=== PATIENT | female | born 1995 | race African-American/Black ===

== ENCOUNTER 2019-11-27 12:48 | Emergency (ER) | payer OTHER ==
[2019-11-27 13:02] VITALS: BP 103/64; PULSE 80; TEMP 97.8; BMI 32.4
--- NOTE | 2019-11-27 13:28 | PDOC ---
History of Present Illness - General Chief Complaint: Pain Stated Complaint: LT. BREAST LUMP Time Seen by Provider: 11/27/19 13:03 History Source: Patient - History of Present Illness Timing/Duration: other Severity: moderate Past History - Past Medical History Allergies/Adverse Reactions: Allergies Allergy/AdvReac Type Severity Reaction Status Date / Time No Known Allergies Allergy Verified 11/27/19 12:58 CVA: Yes COPD: Yes CHF: Yes Other medical history: MIGRANES - Immunization History Immunization Up to Date: Yes - Psycho Social/Smoking Cessation Hx Smoking History: Never smoked Hx Alcohol Use: No Drug/Substance Use Hx: No Review of Systems - Review of Systems Constitutional: No: Chills, Fever *Physical Exam - Vital Signs Last Vital Signs Temp Pulse Resp BP Pulse Ox 97.8 F 80 16 103/64 100 11/27/19 12:59 11/27/19 12:59 11/27/19 12:59 11/27/19 12:59 11/27/19 12:59 - Physical Exam General Appearance: Yes: Appropriately Dressed. No: Apparent Distress HEENT: positive: Normal Voice Neck: positive: Supple Respiratory/Chest: positive: Other (~2x1 hard, minimally tender mass w/ deep palpation to L breast in 2-3 0' clock position, no erythema, no axillart lymphadenopathy). negative: Respiratory Distress Integumentary: positive: Dry, Warm Neurologic: positive: Fully Oriented, Alert, Normal Mood/Affect ED Treatment Course - RADIOLOGY Radiology Studies Ordered: Category Date Time Status BREAST US LEFT COMPLETE [US] Routine Ultrasound 11/27/19 13:22 Ordered Medical Decision Making - Medical Decision Making 11/27/19 13:25 24-year-old female, no significant history, here with L breast mass that is minimally painful since yesterday. No fever, chills, skin discoloration, nipple discharge or unexplained weight loss. No recent trauma. No prior episode. Not currently on menses. No family no significant family history p see exam L breast mass R/o abscess vs cyst, r/o malignancy -US 11/27/19 14:19 Ultrasound compatible with cyst per report. Will dc with [id number] meds as needed pain and follow-up with breast specialist, Dr. Reyes Discharge - Discharge Information Problems reviewed: Yes Clinical Impression/Diagnosis: Left breast mass Condition: Good Disposition: HOME - Follow up/Referral Referrals: Severiano Farmer MD [Primary Care Provider] - Yan Reyes MD [Staff Physician] - - Patient Discharge Instructions Patient Printed Discharge Instructions: DI for Breast Cyst Additional Instructions: Your ultrasound shows a breast cyst Please follow-up with Dr. Reyes for further evaluation Take motrin or tylenol for pain as needed - Post Discharge Activity Work/Back to School Note: Back to Work
== END 2019-11-27 14:22 | disposition home or self-care (01) ==
LOC: JERFT 12:48
DX: N63.21 Unspecified lump in the left breast, upper outer quadrant (principal)
CPT/HCPCS: 76642-TC-LT; 99281-25

== ENCOUNTER → 2019-12-24 | Day surgery (SDC) | payer OTHER ==
--- NOTE | 2019-12-26 18:23 | PATH ---
Cytology Non-Gynecological Report Patient Name: BARB MEDEL Med. Rec. #: [id number] /Age/Gender: 1995 (Age: 24) / F Account: [id number] Location: Taken: 12/24/2019 Received: 12/24/2019 Reported: 12/26/2019 Physicians: Norberto Barber MD Specimen(s) Received BREAST, LEFT, CYST, FINE NEEDLE ASPIRATION Clinical History 24 year old female with palpable left breast cyst Final Diagnosis BREAST, LEFT, CYST, 2:00, FINE NEEDLE ASPIRATION: SCANT PROTEINACEOUS DEBRIS SUGGESTIVE OF CYST CONTENTS. NO MALIGNANT CELLS IDENTIFIED. NO MACROPHAGES OR DUCTAL CELLS IDENTIFIED. Comment: Suggest clinical and radiologic correlation Electronically Signed Darcy Wick M.D. Gross Description Approximately 35 cc of white turbid fluid received fixed in 50% alcohol. One cytofunnel prepared and Pap stained. One cellblock prepared.
== END | disposition home or self-care (01) ==
LOC: JMAMMO-SUR 09:21
PROVIDERS: ATTEND Surgery
PROC: 0H9U3ZX Drainage of Left Breast, Percutaneous Approach, Diagnostic (ICD-10-PCS; principal; 2019-12-24)
PROC: BH41ZZZ Ultrasonography of Left Breast (ICD-10-PCS; 2019-12-24)
DX: N60.01 Solitary cyst of right breast (principal)
CPT/HCPCS: 76942-TC; 87899; 88173; 88305-TC

== ENCOUNTER 2020-12-08 19:47 | Emergency (ER) | payer OTHER ==
[2020-12-08 19:53] VITALS: BP 111/73; PULSE 86; TEMP 98.7; BMI 30.9
[2020-12-08] MEDS ORDERED: KETOROLAC TROMETHAMINE 30 MG/1 ML VIAL IM ONE (21:24)
[2020-12-08] MEDS ORDERED: KETOROLAC TROMETHAMINE 30 MG/1 ML VIAL ONE (21:29)
== END 2020-12-08 22:06 | disposition home or self-care (01) ==
LOC: JERFT 19:47
PROC: 3E0233Z Introduction of Anti-inflammatory into Muscle, Percutaneous Approach (ICD-10-PCS; principal; 2020-12-08)
DX: R51.9 Headache, unspecified (principal)
CPT/HCPCS: 99284-25